=== PATIENT | male | born 1960 | race Caucasian/White ===

== ENCOUNTER 2017-06-28 21:15 | Inpatient (IN) | payer BC ==
[~2017-06-28] VITALS: Ht 180.3 cm; Wt 109.6 kg
[2017-06-28] MEDS ORDERED: SODIUM CHLORIDE 0.9% 1,000 ML IV ONE (23:08)
[2017-06-28] MEDS ORDERED: VANCOMYCIN PER PHARMACY MC PRN (23:30)
[2017-06-28] MEDS ORDERED: SODIUM CHLORIDE FLUSH 10ML SYR IVF ONE (23:30)
[2017-06-28] MEDS ORDERED: MORPHINE SULFATE 4 MG/ML, 1ML IVPush PRN (23:30)
[2017-06-28] MEDS ORDERED: AMPICILLIN/SULBACTAM 3 GM in SODIUM CHLORIDE 0.9% 100 ML IVPB ONE (23:30)
[2017-06-28 23:50] LABS: HEMOGLOBIN 13.9 g/dL (13.7-18.0); WHITE BLOOD COUNT 8.5 x10^3/uL (3.4-10)
[2017-06-28 23:52] LABS: ASPARTATE AMINO TRANSFERASE 30 U/L (15-37); BLOOD UREA NITROGEN 26 mg/dL (7-18)
[2017-06-29] MEDS ORDERED: VANCOMYCIN 2,400 MG in SODIUM CHLORIDE 0.9% 500 ML IV ONE
[2017-06-29] MEDS ORDERED: MORPHINE SULFATE 4 MG/ML, 1ML ONE (00:03)
[2017-06-29] MEDS ORDERED: FUROSEMIDE 40 MG/4 ML ONE (00:46)
[2017-06-29] MEDS ORDERED: FUROSEMIDE 40 MG/4 ML IV ONE (01:00)
[2017-06-29 01:56] VITALS: BP 165/115
[2017-06-29] MEDS ORDERED: DOCUSATE 100 MG CAPSULE PO PRN (02:00)
[2017-06-29] MEDS ORDERED: ACETAMINOPHEN 325 MG TABLET PO PRN (02:00)
[2017-06-29] MEDS ORDERED: ONDANSETRON ODT 4 MG PO PRN (02:00)
[2017-06-29] MEDS ORDERED: ONDANSETRON 2MG/ML, 2ML IVPush PRN (02:00)
[2017-06-29] MEDS ORDERED: PROMETHAZINE 25 MG/ML, 1ML IM PRN (02:00)
[2017-06-29] MEDS ORDERED: PHARMACOKINETIC MONITORING MC PRN (02:30)
[2017-06-29] MEDS ORDERED: VANCOMYCIN PER PHARMACY MC PRN (02:30)
[2017-06-29 03:48] LABS: IS PT STATUS REG ER OR PRE ER? NO
[2017-06-29] MEDS: ENOXAPARIN 30 MG/0.3 ML SQ SCH ×2 (05:10→14:25)
[2017-06-29 05:23] LABS: HEMATOCRIT 42.3 % (39.2-51.8); HEMOGLOBIN 13.6 g/dL (13.7-18.0); WHITE BLOOD COUNT 8.8 x10^3/uL (3.4-10)
[2017-06-29 05:57] LABS: ASPARTATE AMINO TRANSFERASE 31 U/L (15-37); BLOOD UREA NITROGEN 23 mg/dL (7-18)
[2017-06-29 06:54] VITALS: BP 157/89
[2017-06-29] MEDS: INSULIN ASPART 100 UNITS/ML, PEN SQ-INSULIN SCH ×4 (07:00→20:20)
[2017-06-29] MEDS ORDERED: MAGNESIUM SULFATE 3 GM in SODIUM CHLORIDE 0.9% 100 ML IV ONE (08:00)
[2017-06-29] MEDS ORDERED: AMPICILLIN/SULBACTAM 3 GM IM SCH (08:00)
[2017-06-29 08:18] LABS: IS PT STATUS REG ER OR PRE ER? NO
[2017-06-29 09:32] LABS: IS PT STATUS REG ER OR PRE ER? NO
[2017-06-29] MEDS: AMPICILLIN/SULBACTAM 3 GM in SODIUM CHLORIDE 0.9% 100 ML IV SCH ×3 (09:32→22:00)
[2017-06-29] MEDS: FUROSEMIDE 40 MG/4 ML IV SCH ×2 (09:33→17:11)
[2017-06-29] MEDS: METOPROLOL TARTRATE 25 MG TABLET PO SCH ×2 (09:33→17:14)
[2017-06-29] MEDS: AMLODIPINE 5 MG TABLET PO SCH (09:33)
[2017-06-29] MEDS: SODIUM CHLORIDE FLUSH 10ML SYR IVF SCH ×2 (09:33→20:37)
[2017-06-29] MEDS: LISINOPRIL 10 MG TABLET PO SCH (09:34)
[2017-06-29 11:38] VITALS: BP 130/83
[2017-06-29 11:41] VITALS: BP 130/83
[2017-06-29] MEDS ORDERED: VALS320T2 PO (12:32)
[2017-06-29] MEDS ORDERED: METO50TA82 PO (12:32)
[2017-06-29] MEDS ORDERED: AMLO5TAB2 PO (12:32)
[2017-06-29 14:04] VITALS: BP 153/93
[2017-06-29] MEDS: VANCOMYCIN 2,000 MG in SODIUM CHLORIDE 0.9% 500 ML IV SCH (17:11)
[2017-06-29 20:14] VITALS: BP 135/89
[2017-06-30 01:01] VITALS: BP 132/91
[2017-06-30] MEDS: AMPICILLIN/SULBACTAM 3 GM in SODIUM CHLORIDE 0.9% 100 ML IV SCH ×4 (03:15→21:44)
[2017-06-30] MEDS: ENOXAPARIN 30 MG/0.3 ML SQ SCH ×2 (03:15→14:00)
[2017-06-30] MEDS: METOPROLOL TARTRATE 25 MG TABLET PO SCH ×2 (05:19→17:23)
[2017-06-30 06:12] LABS: HEMATOCRIT 43.3 % (39.2-51.8); HEMOGLOBIN 14.1 g/dL (13.7-18.0)
[2017-06-30 06:20] LABS: BLOOD UREA NITROGEN 24 mg/dL (7-18)
[2017-06-30] MEDS: INSULIN ASPART 100 UNITS/ML, PEN SQ-INSULIN SCH ×4 (07:00→20:39)
[2017-06-30 07:27] VITALS: BP 129/85
[2017-06-30] MEDS: FUROSEMIDE 40 MG/4 ML IV SCH ×2 (09:51→17:00)
[2017-06-30] MEDS: AMLODIPINE 5 MG TABLET PO SCH (09:51)
[2017-06-30] MEDS: SODIUM CHLORIDE FLUSH 10ML SYR IVF SCH ×2 (09:54→21:44)
[2017-06-30] MEDS: LISINOPRIL 10 MG TABLET PO SCH (09:54)
[2017-06-30] MEDS: VANCOMYCIN 2,000 MG in SODIUM CHLORIDE 0.9% 500 ML IV SCH (11:38)
[2017-06-30 13:42] VITALS: BP 127/79
[2017-06-30 20:04] VITALS: BP 135/82
[2017-07-01] MEDS: ENOXAPARIN 30 MG/0.3 ML SQ SCH ×2 (02:00→18:02)
[2017-07-01 02:53] VITALS: BP 141/82
[2017-07-01] MEDS: AMPICILLIN/SULBACTAM 3 GM in SODIUM CHLORIDE 0.9% 100 ML IV SCH ×3 (04:37→18:02)
[2017-07-01] MEDS: VANCOMYCIN 2,000 MG in SODIUM CHLORIDE 0.9% 500 ML IV SCH (05:40)
[2017-07-01] MEDS: METOPROLOL TARTRATE 25 MG TABLET PO SCH ×2 (05:42→18:02)
[2017-07-01 05:44] LABS: BLOOD UREA NITROGEN 23 mg/dL (7-18)
[2017-07-01] MEDS: INSULIN ASPART 100 UNITS/ML, PEN SQ-INSULIN SCH ×4 (07:00→20:50)
[2017-07-01] MEDS: FUROSEMIDE 40 MG/4 ML IV SCH ×2 (07:30→18:02)
[2017-07-01 07:49] VITALS: BP 136/79
[2017-07-01] MEDS: AMLODIPINE 5 MG TABLET PO SCH (08:30)
[2017-07-01] MEDS: LISINOPRIL 10 MG TABLET PO SCH (08:30)
[2017-07-01] MEDS: SODIUM CHLORIDE FLUSH 10ML SYR IVF SCH ×2 (08:30→20:50)
[2017-07-01] MEDS: LISINOPRIL 20 MG TABLET PO SCH (09:00)
[2017-07-01 13:31] VITALS: BP_SYST 100; BP_SYST 137; BP_DIAS 63; BP_DIAS 92
[2017-07-01] MEDS: INDOMETHACIN 25 MG CAPSULE PO PRN (18:02)
[2017-07-01 19:08] VITALS: BP 155/88
[2017-07-02] MEDS: AMPICILLIN/SULBACTAM 3 GM in SODIUM CHLORIDE 0.9% 100 ML IV SCH ×2 (00:32→05:51)
[2017-07-02 01:06] VITALS: BP 137/80
[2017-07-02] MEDS: ENOXAPARIN 30 MG/0.3 ML SQ SCH ×2 (02:00→17:12)
[2017-07-02] MEDS ORDERED: VANCOMYCIN 2,000 MG in SODIUM CHLORIDE 0.9% 500 ML IV SCH (05:00)
[2017-07-02] MEDS: INDOMETHACIN 25 MG CAPSULE PO PRN (05:52)
[2017-07-02] MEDS: METOPROLOL TARTRATE 25 MG TABLET PO SCH ×2 (05:52→17:12)
[2017-07-02 06:02] LABS: HEMATOCRIT 41.7 % (39.2-51.8); HEMOGLOBIN 13.7 g/dL (13.7-18.0); WHITE BLOOD COUNT 9.1 x10^3/uL (3.4-10)
[2017-07-02 06:25] LABS: ASPARTATE AMINO TRANSFERASE 36 U/L (15-37); BLOOD UREA NITROGEN 16 mg/dL (7-18)
[2017-07-02 08:03] VITALS: BP 137/83
[2017-07-02] MEDS: INSULIN ASPART 100 UNITS/ML, PEN SQ-INSULIN SCH ×4 (08:10→21:00)
[2017-07-02] MEDS: LISINOPRIL 20 MG TABLET PO SCH (10:41)
[2017-07-02] MEDS: POTASSIUM CHLORIDE 20 MEQ PACKET PO SCH ×2 (10:41→17:12)
[2017-07-02] MEDS: FUROSEMIDE 40 MG TABLET PO SCH (10:41)
[2017-07-02] MEDS: CLINDAMYCIN 300 MG CAPSULE PO SCH ×3 (10:42→21:42)
[2017-07-02] MEDS: SODIUM CHLORIDE FLUSH 10ML SYR IVF SCH ×2 (10:42→21:42)
[2017-07-02] MEDS ORDERED: FURO40TA6 PO (10:58)
[2017-07-02] MEDS ORDERED: CLIN300C8 PO (10:58)
[2017-07-02] MEDS ORDERED: INDO25CA PO (10:58)
[2017-07-02] MEDS ORDERED: POTA20PA25 PO (10:58)
[2017-07-02] MEDS ORDERED: TRAM50TA2 PO (10:58)
[2017-07-02] MEDS ORDERED: LEVO25TA2 PO (11:08)
[2017-07-02] MEDS ORDERED: LEVOTHYROXINE 100 MCG TABLET ONE (11:30)
[2017-07-02] MEDS: LEVOTHYROXINE 25 MCG TABLET PO SCH (11:39)
[2017-07-02 13:20] VITALS: BP 137/83
[2017-07-02 20:50] VITALS: BP 148/56
[2017-07-03 02:00] VITALS: BP 144/83
[2017-07-03 05:03] LABS: BLOOD UREA NITROGEN 19 mg/dL (7-18)
[2017-07-03 06:08] VITALS: BP 140/99
[2017-07-03] MEDS: ENOXAPARIN 30 MG/0.3 ML SQ SCH (06:09)
[2017-07-03] MEDS: CLINDAMYCIN 300 MG CAPSULE PO SCH ×2 (06:09→11:21)
[2017-07-03] MEDS: METOPROLOL TARTRATE 25 MG TABLET PO SCH (06:09)
[2017-07-03] MEDS: LEVOTHYROXINE 25 MCG TABLET PO SCH (06:10)
[2017-07-03] MEDS: LISINOPRIL 20 MG TABLET PO SCH (08:09)
[2017-07-03] MEDS: FUROSEMIDE 40 MG TABLET PO SCH (08:09)
[2017-07-03] MEDS: INSULIN ASPART 100 UNITS/ML, PEN SQ-INSULIN SCH ×2 (08:09→11:21)
[2017-07-03] MEDS: POTASSIUM CHLORIDE 20 MEQ PACKET PO SCH (08:09)
[2017-07-03] MEDS: SODIUM CHLORIDE FLUSH 10ML SYR IVF SCH (08:10)
[2017-07-03] MEDS ORDERED: LEVOFLOXACIN 750 MG TABLET PO SCH (09:00)
[2017-07-03] MEDS ORDERED: LEVO750T26 PO (12:57)
== END 2017-07-03 15:10 | disposition home or self-care (01) | DRG 602 ==
LOC: ED 06-29 01:28 → EDIP 06-29 01:30 → 3NE 06-29 01:41 → 4EST 06-29 11:53
PROVIDERS: ADMIT Surgery; ATTEND Internal Medicine
DX: L03.116 Cellulitis of left lower limb (principal); E43 Unspecified severe protein-calorie malnutrition; N17.0 Acute kidney failure with tubular necrosis; I50.43 Acute on chronic combined systolic (congestive) and diastolic (congestive) heart failure; I27.29 Other secondary pulmonary hypertension; E11.22 Type 2 diabetes mellitus with diabetic chronic kidney disease; E66.01 Morbid (severe) obesity due to excess calories; I13.0 Hypertensive heart and chronic kidney disease with heart failure and stage 1 through stage 4 chronic kidney disease, or unspecified chronic kidney disease; L03.115 Cellulitis of right lower limb; G47.33 Obstructive sleep apnea (adult) (pediatric); F17.200 Nicotine dependence, unspecified, uncomplicated; I27.81 Cor pulmonale (chronic); N18.9 Chronic kidney disease, unspecified; Z68.34 Body mass index [BMI] 34.0-34.9, adult; Z79.84 Long term (current) use of oral hypoglycemic drugs; Z91.14 Patient's other noncompliance with medication regimen; Z98.84 Bariatric surgery status; Z71.6 Tobacco abuse counseling
CPT/HCPCS: 36415; 71010; 80048; 80053; 80061; 80202; 82962; 83036; 83735; 83880; 84100; 84443; 84484; 85025; 85610; 85651; 85730; 87040; 87070; 87077; 87186; 87205; 93005; 93306; 93970; 96365; 96367; 96375; J0295; J1650; J1815; J1940; J3370; J3475; J7030; J7040